=== PATIENT | male | born 1985 | race Two or more races ===

== ENCOUNTER 2024-10-08 13:36 | Emergency (ER) | payer MEDICAID, OTHER ==
[~2024-10-08] VITALS: Ht 175.3 cm; Wt 63.8 kg
[2024-10-08 15:45] VITALS: TEMP 98
[2024-10-08] MEDS: SODIUM CHLORIDE 0.9% 1,000 ML IV ONE (16:00)
--- NOTE | 2024-10-08 16:06 | ED.PDOC ---
HPI (NEURO) HPI Comments 39 year old male presents to the ED with chief complaint of dizziness. Patient reports that he has been experiencing intermittent dizziness and imbalance for the past 4 days, believing it to be vertigo. Patient relays that he had been seen at [facility] and [facility] multiple times for the same complaint with no abnormalities shown in his lab work or imaging studies. Patient states no one has checked his ears as they feel clogged and there is pressure in both, but he was prescribed Azithromycin for a presumed infection. Patient notes after taking the Azithromycin for 3 days, he began to experience palpitations, so he stopped taking them. Patient notes diarrhea and nausea this morning, unknown if related to his dizziness. Patient denies any vomiting, headache, fever, chills, ear pain, chest pain, or SOB. Chief Complaint: Dizziness Time Seen by MD: 15:59 Primary Care Provider: GUILHERME Delgado Notes: Nurses Notes, Medications, Allergies Information Source: Patient Mode of Arrival: Wheelchair Severity: Moderate Dizziness/Weakness Severity: Unable to do activities Headache Severity: None Timing: Days Duration: Since onset Prehospital treatment: None Onset: At rest Circumstances: Spontaneous Symptoms: Vertigo, Imbalance History of: None Modifying factors: Nothing Past Medical History PAST MEDICAL HISTORY: Denies Surgical History: Denies all surgeries Family History Family History: Reviewed,noncontributory to illness Social History Smoker: Cigarettes Alcohol: Denies ETOH Use Drugs: Denies Drug Use Lives In: Home Constitutional: denies: chills, diaphoresis, fatigue, fever, malaise, sweats, weakness, others EENTM: denies: blurred vision, double vision, ear bleeding, ear discharge, ear drainage, ear pain, ear ringing, eye pain, eye redness, hearing loss, mouth pain, mouth swelling, nasal discharge, nose bleeding, nose congestion, nose pain, photophobia, tearing, throat pain, throat swelling, voice changes, others Respiratory: denies: cough, hemoptysis, orthopnea, SOB at rest, shortness of breath, SOB with excertion, stridor, wheezing, others Cardiovascular: denies: chest pain, dizzy spells, diaphoresis, Dyspnea on exertion, edema, irregular heart beat, left arm pain, lightheadedness, palpitations, PND, syncope, others Gastrointestinal: reports: diarrhea, nausea; denies: abdomen distended, abdominal pain, blood streaked bowels, constipated, dysphagia, difficulty swallowing, hematemesis, melena, poor appetite, poor fluid intake, rectal bleeding, rectal pain, vomiting, others Genitourinary: denies: burning, dysuria, flank pain, frequency, hematuria, incontinence, penile discharge, penile sore, pain, testicle pain, testicle swell ing, urgency, others Neurological: reports: dizziness, others (Imbalance); denies: fainting, headache, left sided numbness, left sided weakness, numbness, paresthesia, pre- existing deficit, right sided numbness, right sided weakness, seizure, speech problems, tingling, tremors, weakness Musculoskeletal: denies: back pain, gout, joint pain, joint swelling, muscle pain, muscle stiffness, neck pain, others Integumetry: denies: bruises, change in color, change in hair/nails, dryness, laceration, lesions, lumps, rash, wounds, others Allergic/Immunocompromised: denies: Difficulty Healing, Frequent Infections, Hives, Itching, others Hematologic/Lymphatic: denies: anemia, blood clots, easy bleeding, easy bruising, swollen glands, others Endocrine: denies: excessive hunger, excessive sweating, excessive thirst, excessive urination, flushing, intolerance to cold, intolerance to heat, unexplained weight gain, unexplained weight loss, others Psychiatric: denies: anxiety, bipolar disorder, depression, hopeless, panic disorder, schizophrenia, sleepless, suicidal, others All Other Systems: Reviewed and Negative Physical Exam General Appearance: No Apparent Distress HEENT: PERRL/EOMI, Other (Left TM unremarkable. Right TM cloudy. Canals unremarkable.) Neck: Full Range of Motion, Normal Inspection Respiratory: Lungs Clear, No Accessory Muscle Use, No Respiratory Distress, Normal Breath Sounds Cardiovascular: No Edema, No JVD, Regular Rate/Rhythm Breast Exam: Deferred Gastrointestinal: Non Tender, Soft Genitalia: Deferred Pelvic: Deferred Rectal: Deferred Extremities: Normal inspection, Normal range of motion, Non-tender, No pedal edema Neurologic: Alert (Oriented x4), No Motor Deficits, Normal Affect, Normal Mood, No Sensory Deficits, Other (Head movement and eye movement reproduces dizziness symptoms.) Cerebellar Function: NOT DONE Reflexes: NOT DONE Skin: Dry, Normal Color, Warm Lymphatic: NOT DONE EKG EKG : Comments Sinus rhythm, rate 66, normal intervals, normal axis, normal QRS, nonspecific T change. Was a procedure done? Was a procedure done?: No Differential Diagnosis (SZ) Seizure: Idiopathic CVA: Electrolyte Imbalance, Encephalopathy, Hypoglycemia, TIA General Weakness: Meniere's disease Headache: Sinusitis, Other (Otitis media, positional vertigo, among others) X-Ray, Labs, Meds, VS Vital Signs Date Time Temp Pulse Resp B/P (MAP) Pulse Ox O2 Delivery O2 Flow Rate FiO2 10/08/24 15:45 98.0 64 18 144/90 (108) 100 98.0 10/08/24 15:45 64 18 100 Room Air 10/08/24 13:49 66 10/08/24 13:43 99.1 73 16 138/83 (101) 100 Lab Test 10/08/24 17:17 10/08/24 16:38 10/08/24 16:10 10/08/24 13:45 Range/Units Troponin I High Sensitivity < 3 L < 3 L </=54 ng/L Urine Color Colorless Yellow Urine Clarity Clear Clear Urine pH 6.0 5.0-9.0 Urine Specific Drake 1.005 1.001-1.035 Urine Protein Negative Negative Urine Ketones 1+ H Negative Urine Blood Negative Negative /uL Urine Nitrite Negative Negative Urine Bilirubin Negative Negative Urine Urobilinogen Normal Negative mg/dL Urine Leukocyte Esterase Negative Negative /uL Urine RBC <1 0 - 3 /hpf Urine WBC 1 0 - 3 /hpf Urine Squamous Epithelial Cells Few <5 /hpf Urine Bacteria None seen None Seen /hpf Urine Glucose Normal Normal mg/dL White Blood Count 9.9 4.4-10.8 10^3/uL Red Blood Count 5.18 4.5-5.90 10^6/uL Hemoglobin 14.6 13.5-17.5 g/dL Hematocrit 45.0 41.0-53.0 % Mean Corpuscular Volume 86.8 80.0-100.0 fL Mean Corpuscular Hemoglobin 28.2 28.0-32.0 pg Mean Corpuscular Hemoglobin Concent 32.5 32.0-36.0 g/dL Red Cell Distribution Width 14.5 H 11.8-14.3 % Platelet Count 360 140-450 10^3/uL Mean Platelet Volume 7.2 6.9-10.8 fL Neutrophils (%) (Auto) 59.4 37.0-80.0 % Lymphocytes (%) (Auto) 33.4 10.0-50.0 % Monocytes (%) (Auto) 5.7 0.0-12.0 % Eosinophils (%) (Auto) 0.8 0.0-7.0 % Basophils (%) (Auto) 0.7 0.0-2.0 % Neutrophils # (Auto) 5.9 1.6-8.6 10 ^3/uL Lymphocytes # (Auto) 3.3 0.4-5.4 10 ^3/uL Monocytes # (Auto) 0.6 0-1.3 10 ^3/uL Eosinophils # (Auto) 0.1 0-0.8 10 ^3/uL Basophils # (Auto) 0.1 0-0.2 10 ^3/uL Nucleated Red Blood Cells 0.2 % Sodium Level 140 136-145 mmol/L Potassium Level 4.1 3.5-5.1 mmol/L Chloride Level 108 H 98-107 mmol/L Carbon Dioxide Level 24 20-31 mmol/L Anion Gap 8 5-15 Blood Urea Nitrogen 8 L 9-23 mg/dL Creatinine 0.98 0.700-1.30 mg/dL Glomerular Filtration Rate Calc 99 >90 mL/min BUN/Creatinine Ratio 8.2 L 10.0-20.0 Serum Glucose 88 74-106 mg/dL Calcium Level 10.2 8.7-10.4 mg/dL B-Type Natriuretic Peptide 9.27 0-100 pg/mL POC Glucose 89 70-106 mg/dl Current Medications Medications (Trade) Dose Ordered Sig/Krystle Route Start Time Stop Time Status Last Admin Sodium Chloride 1,000 ml @ 1,000 mls/hr Q1H ONCE IV 10/08/24 16:00 10/08/24 16:59 DC 10/08/24 16:00 Ondansetron HCl (Zofran) 4 mg ONCE ONCE IV 10/08/24 16:00 10/08/24 16:01 DC 10/08/24 16:37 Dexamethasone Sodium Phosphate (Decadron Injection) 10 mg ONCE ONCE IV 10/08/24 16:00 10/08/24 16:01 DC 10/08/24 16:36 Lorazepam (Ativan Inj) 0.5 mg ONCE ONCE IV 10/08/24 16:00 10/08/24 16:01 DC 10/08/24 16:37 Meclizine HCl (Antivert Tablet) 50 mg ONCE ONCE PO 10/08/24 16:00 10/08/24 16:01 DC 10/08/24 16:37 X-Ray, Labs, Meds, VS Comment 39-year-old male with no significant past medical history complaining of dizzin ess and palpitations. Patient was seen at both [facility] and [facility] with negative workups. He was never treated for vertigo. Patient states no one ever examined his ears. Vitals unremarkable Exam remarkable for a cloudy right TM and reproducible dizziness with head and eye movement. CBC, BMP, BNP and troponin unremarkable for any abnormality of acute sig nificance Patient treated with the following in the ED: 1 L 0.9 normal saline IV bolus, Decadron 10 mg IV, Ativan 0.5 mg IV, Zofran 4 mg IV, meclizine 50 mg p.o.. On re-evaluation, patient states his symptoms have resolved. He is ambulatory without difficulty and has no focal neurologic deficit. Head movement no longer reproduces dizziness symptoms. Hospitalization was considered, however patient had rapid improvement of his symptoms with treatment in the ED, and I no longer feel hospitalization is nec essary. Patient is stable for outpatient treatment with close follow-up with his primary physician. Rx meclizine, Zofran, Bactrim. Time of 1ST Reevaluation: 16:59 Reevaluation 1ST: Improved Patient Education/Counseling: Diagnosis, Treatment Family Education/Counseling: No Family Present Departure 1 Departure Time of Disposition: 18:22 Impression: Primary Impression: Vertigo Additional Impression: Otitis media Qualified Codes: H66.91 - Otitis media, unspecified, right ear Disposition: HOME / SELF CARE / HOMELESS Condition: Stable Additional Instructions: Your blood tests including heart tests were unremarkable. Your EKG was unremarkable. I have prescribed medication for vertigo, nausea, and antibiotics for an ear infection. Follow-up with your primary doctor in 1-2 days. e-Prescriptions Meclizine HCl (Meclizine 25) 25 Mg Tab 1-2 TAB PO Q8HP PRN, #30 TAB prn dizziness/vertigo Prov: LILLIAN RUIARTE MD 10/08/24 Ondansetron Odt 4MG Tab (ZOFRAN PO) 4 Mg Tb 4 MG PO TID PRN, #30 TAB prn nausea ODT TAB-DISSOLVE IN MOUTH, THEN SWALLOW Prov: LILLIAN URIARTE MD 10/08/24 Sulfamethoxazole W/Trimethopri (Bactrim Ds Tablet) 1 Tab Tb 1 TAB PO BID for 7 Days, #14 TAB Prov: LILLIAN URIARTE MD 10/08/24 Discharged With: Self Critical Care Note Critical Care Time?: No Stability Stability form required: No Heart Score Heart Score: Heart Score Response (Comments) Value History N/A 0 EKG N/A 0 Age N/A 0 Risk Factors N/A 0 Troponin N/A 0 Total 0 I personally scribed for LILLIAN URIARTE MD ([email or web address]) on 10/08/24 at 16:06. Electronically submitted by Chirag Leyva ([email or web address]). LILLIAN URIARTE MD Oct 08, 2024 16:06
[2024-10-08 16:26] LABS: Basophils # (auto) 0.1 10 ^3/uL (0-0.2); Basophils % (auto) 0.7 % (0.0-2.0); Eosinophils # (auto) 0.1 10 ^3/uL (0-0.8); Eosinophils % (auto) 0.8 % (0.0-7.0); Hemoglobin 14.6 g/dL (13.5-17.5); Lymphocytes # (auto) 3.3 10 ^3/uL (0.4-5.4); Lymphocytes % (auto) 33.4 % (10.0-50.0); Mean Corpuscular Hemoglobin 28.2 pg (28.0-32.0); Mean Corpuscular Hgb Conc. 32.5 g/dL (32.0-36.0); Mean Corpuscular Volume 86.8 fL (80.0-100.0); Monocytes # (auto) 0.6 10 ^3/uL (0-1.3); Monocytes % (auto) 5.7 % (0.0-12.0); Neutrophils # (auto) 5.9 10 ^3/uL (1.6-8.6); Neutrophils % (auto) 59.4 % (37.0-80.0); Nucleated Red Blood Cells % 0.2 %; Platelet Count (auto) 360 10^3/uL (140-450); Red Blood Cells 5.18 10^6/uL (4.5-5.90); Red Cell Distribution Width 14.5 % (11.8-14.3); White Blood Cell 9.9 10^3/uL (4.4-10.8)
[2024-10-08] MEDS: DexAMETHasone SOD PHOS 10MG/1ML VIAL INJ IV ONE (16:36)
[2024-10-08] MEDS: ONDANSETRON HCL 4 MG/2 ML VIAL IV ONE (16:37)
[2024-10-08] MEDS: MECLIZINE HCL 25 MG TAB PO ONE (16:37)
[2024-10-08] MEDS: LORazepam 2MG/ML-1ML VIAL IV ONE (16:37)
[2024-10-08 16:43] LABS: Potassium 4.1 mmol/L (3.5-5.1); Sodium 140 mmol/L (136-145)
[2024-10-08 16:44] LABS: Anion Gap 8 (5-15); Carbon Dioxide 24 mmol/L (20-31); Chloride 108 mmol/L (98-107)
[2024-10-08 16:45] LABS: Calcium 10.2 mg/dL (8.7-10.4)
[2024-10-08 16:49] LABS: BUN/Creatinine Ratio 8.2 (10.0-20.0); Glucose 88 mg/dL (74-106)
[2024-10-08 16:52] LABS: Blood Urea Nitrogen 8 mg/dL (9-23)
[2024-10-08 17:27] LABS: Urine Bacteria None Seen /hpf (None Seen)
[2024-10-08 17:34] LABS: Urine Blood Negative /uL (Negative); Urine Clarity Clear (Clear); Urine Color Colorless (Yellow); Urine Protein, UAD Negative (Negative); Urine Specific Gravity 1.005 (1.001-1.035); Urine Squamous Epithelial Cell FEW /hpf (<5); Urine Urobilinogen Normal (Negative); Urine WBC 1 /hpf (0 - 3)
[2024-10-08] MEDS ORDERED: ZOFR4T PO (18:30)
[2024-10-08] MEDS ORDERED: MECL1TAB42 PO (18:30)
[2024-10-08] MEDS ORDERED: BACDST PO (18:30)
[2024-10-08 19:12] VITALS: BP 123/74; PULSE 74; RESP 18; O2SAT 98
--- NOTE | 2024-10-14 18:02 | ECG ---
[facility] Test Date: 2024-10-08 Test Time: 13:49:48 Pat Name: JESSICA FELICIANO Department: ER Room: Gender: M Regulatory Compliance Officer: CHRIS : 1985 Requested By: LILLIAN RUIZ Order Number: [id number] Reading MD: Maciel Darden Measurements Intervals Raysal Rate: 66 P: 78 WA: 137 QRS: 69 QRSD: 76 T: -15 QT: 372 QTc: 390 Interpretive Statements Sinus rhythm Borderline T abnormalities, inferior leads Electronically Signed On 10-14-2024 18:13:17 PST by Maciel Darden Please click the below link to view image of tracing.
== END 2024-10-08 19:13 | disposition home or self-care (01) ==
LOC: ER 13:36
DX: H66.91 Otitis media, unspecified, right ear (principal); R42 Dizziness and giddiness; F17.210 Nicotine dependence, cigarettes, uncomplicated
CPT/HCPCS: 36415; 80048; 81001; 82962; 83880; 84484; 85025; 93005; 96361; 96374; 96375; 99284; J1100; J2060; J2405; J7030; J8597

== ENCOUNTER 2024-10-15 12:17 | Emergency (ER) | payer MEDICAID ==
[~2024-10-15] VITALS: Ht 175.3 cm; Wt 64.5 kg
[~2024-10-15 12:17] MED LIST: BACDST PO; MECL1TAB42 PO; ZOFR4T PO
[2024-10-15 14:39] LABS: Urine Bacteria None Seen /hpf (None Seen)
[2024-10-15 14:53] LABS: Urine Blood 1+ /uL (Negative); Urine Clarity Clear (Clear); Urine Color Light-Yellow (Yellow); Urine Protein, UAD Negative (Negative); Urine Specific Gravity 1.009 (1.001-1.035); Urine Squamous Epithelial Cell FEW /hpf (<5); Urine Urobilinogen Normal (Negative); Urine WBC 1 /hpf (0 - 3); Urine pH 5.5 (5.0-9.0)
--- NOTE | 2024-10-15 14:55 | ED.PDOC ---
General HPI Comments 39Y M presents to ED for chief complaint dysuria x2days with hematuria. No other symptoms reported. Chief Complaint: Flank Pain Time Seen by MD: 14:34 Primary Care Provider: UNKNOWN Reviewed notes: Nurses Notes, Medications, Allergies Allergies: Coded Allergies: NO KNOWN ALLERGIES (Unverified , 10/08/24) Home Meds Active Scripts Meclizine HCl (Meclizine 25) 25 Mg Tab, 1-2 TAB PO Q8HP PRN, #30 TAB prn dizziness/vertigo Prov:LILLIAN URIARTE MD 10/08/24 Ondansetron Odt 4MG Tab (ZOFRAN PO) 4 Mg Tb, 4 MG PO TID PRN, #30 TAB prn nausea ODT TAB-DISSOLVE IN MOUTH, THEN SWALLOW Prov:LILLIAN URIARTE MD 10/08/24 Sulfamethoxazole W/Trimethopri (Bactrim Ds Tablet) 1 Tab Tb, 1 TAB PO BID for 7 Days, #14 TAB Prov:LILLIAN URIARTE MD 10/08/24 Mode of Arrival: Ambulatory Severity: Mild Timing: Days Duration: Since onset Onset: Spontaneous Symptoms: Dysuria, Hematuria History of: None Location: None Penile discharge: None Modifying factors: None associated signs and symptoms: Dysuria, Hematuria Past Medical History PAST MEDICAL HISTORY: Denies Surgical History: Denies all surgeries Family History Family History: Reviewed,noncontributory to illness Social History Smoker: Cigarettes Alcohol: Denies ETOH Use Drugs: Denies Drug Use Lives In: Home Constitutional: denies: chills, diaphoresis, fatigue, fever, malaise, sweats, weakness, others EENTM: denies: blurred vision, double vision, ear bleeding, ear discharge, ear drainage, ear pain, ear ringing, eye pain, eye redness, hearing loss, mouth pain, mouth swelling, nasal discharge, nose bleeding, nose congestion, nose pain , photophobia, tearing, throat pain, throat swelling, voice changes, others Respiratory: denies: cough, hemoptysis, orthopnea, SOB at rest, shortness of breath, SOB with excertion, stridor, wheezing, others Cardiovascular: denies: chest pain, dizzy spells, diaphoresis, Dyspnea on exertion, edema, irregular heart beat, left arm pain, lightheadedness, palpitations, PND, syncope, others Gastrointestinal: denies: abdomen distended, abdominal pain, blood streaked bowels, constipated, diarrhea, dysphagia, difficulty swallowing, hematemesis, melena, nausea, poor appetite, poor fluid intake, rectal bleeding, rectal pain, vomiting, others Genitourinary: reports: dysuria, hematuria; denies: burning, flank pain, frequency, incontinence, penile discharge, penile sore, pain, testicle pain, testicle swelling, urgency, others Neurological: denies: dizziness, fainting, headache, left sided numbness, left sided weakness, numbness, paresthesia, pre-existing deficit, right sided numbness, right sided weakness, seizure, speech problems, tingling, tremors, weakness, others Musculoskeletal: denies: back pain, gout, joint pain, joint swelling, muscle pain, muscle stiffness, neck pain, others Integumetry: denies: bruises, change in color, change in hair/nails, dryness, laceration, lesions, lumps, rash, wounds, others Allergic/Immunocompromised: denies: Difficulty Healing, Frequent Infections, Hives, Itching, others Hematologic/Lymphatic: denies: anemia, blood clots, easy bleeding, easy bruising, swollen glands, others Endocrine: denies: excessive hunger, excessive sweating, excessive thirst, excessive urination, flushing, intolerance to cold, intolerance to heat, unexplained weight gain, unexplained weight loss, others Psychiatric: denies: anxiety, bipolar disorder, depression, hopeless, panic disorder, schizophrenia, sleepless, suicidal, others All Other Systems: Reviewed and Negative Physical Exam General Appearance: No Apparent Distress, Normal HEENT: Normal ENT Inspection, Pharynx Normal, TMs Normal Neck: Full Range of Motion, Non-Tender, Normal, Normal Inspection Respiratory: Chest Non-Tender, Lungs Clear, No Accessory Muscle Use, No R espiratory Distress, Normal Breath Sounds Cardiovascular: No Edema, No JVD, No Murmur, No Gallop, Normal Peripheral Pulses, Regular Rate/Rhythm Breast Exam: Deferred Gastrointestinal: No Organomegaly, Non Tender, No Pulsatile Mass, Normal Bowel Sounds, Soft Genitalia: Deferred Pelvic: Deferred Rectal: Deferred Extremities: No calf tenderness, Normal capillary refill, Normal inspection, Normal range of motion, Non-tender, No pedal edema Musculoskeletal : Apperance: Normal Neurologic: Alert, 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 Was a procedure done?: No Differential Diagnosis Kidney stone (Female): N/A Kidney stone (Male): Urolithiasis, Urinary tract infection Urinary Problem (Female): N/A Other Differential Diagnosis bladder mass, kidney mass, pyelonephritis, kidney stones, hemorrhagic cystitis, coagulopathy, penile trauma X-Ray, Labs, Meds, VS Vital Signs Date Time Temp Pulse Resp B/P (MAP) Pulse Ox O2 Delivery O2 Flow Rate FiO2 10/15/24 16:16 98.3 91 18 127/88 (101) 98 98.3 10/15/24 12:49 98.6 90 18 128/89 (102) 97 Lab Test 10/15/24 15:14 10/15/24 14:37 Range/Units White Blood Count 5.6 # 4.4-10.8 10^3/uL Red Blood Count 5.25 4.5-5.90 10^6/uL Hemoglobin 14.9 13.5-17.5 g/dL Hematocrit 45.1 41.0-53.0 % Mean Corpuscular Volume 86.0 80.0-100.0 fL Mean Corpuscular Hemoglobin 28.5 28.0-32.0 pg Mean Corpuscular Hemoglobin Concent 33.1 32.0-36.0 g/dL Red Cell Distribution Width 14.3 11.8-14.3 % Platelet Count 227 140-450 10^3/uL Mean Platelet Volume 7.3 6.9-10.8 fL Neutrophils (%) (Auto) 32.0 L 37.0-80.0 % Lymphocytes (%) (Auto) 49.9 10.0-50.0 % Monocytes (%) (Auto) 16.9 H 0.0-12.0 % Eosinophils (%) (Auto) 0.6 0.0-7.0 % Basophils (%) (Auto) 0.6 0.0-2.0 % Neutrophils # (Auto) 1.8 1.6-8.6 10 ^3/uL Lymphocytes # (Auto) 2.8 0.4-5.4 10 ^3/uL Monocytes # (Auto) 0.9 0-1.3 10 ^3/uL Eosinophils # (Auto) 0 0-0.8 10 ^3/uL Basophils # (Auto) 0 0-0.2 10 ^3/uL Nucleated Red Blood Cells 0.9 % Sodium Level 134 #L 136-145 mmol/L Potassium Level 4.2 3.5-5.1 mmol/L Chloride Level 101 98-107 mmol/L Carbon Dioxide Level 27 20-31 mmol/L Anion Gap 6 5-15 Blood Urea Nitrogen 8 L 9-23 mg/dL Creatinine 1.50 H 0.700-1.30 mg/dL Glomerular Filtration Rate Calc 60 >90 mL/min BUN/Creatinine Ratio 5.3 L 10.0-20.0 Serum Glucose 92 74-106 mg/dL Calcium Level 9.8 8.7-10.4 mg/dL Urine Color Light-yellow Yellow Urine Clarity Clear Clear Urine pH 5.5 5.0-9.0 Urine Specific Reading 1.009 1.001-1.035 Urine Protein Negative Negative Urine Ketones Negative Negative Urine Blood 1+ H Negative /uL Urine Nitrite Negative Negative Urine Bilirubin Negative Negative Urine Urobilinogen Normal Negative mg/dL Urine Leukocyte Esterase Negative Negative /uL Urine RBC 8 0 - 3 /hpf Urine WBC 1 0 - 3 /hpf Urine Squamous Epithelial Cells Few <5 /hpf Urine Bacteria None seen None Seen /hpf Urine Glucose Normal Normal mg/dL [place] [id number] Ph: [phone] DIAGNOSTIC IMAGING Diagnostic Imaging Report : [id number] Signed PATIENT: JESSICA FELICIANO ACCT: [id number] UNIT: [id number] : 1985 LOC: ER ROOM / BED: / AGE / SEX: 39 / M ADM STATUS: REG ER SERVICE 1302 ORDERING PHYSICIAN: GUIDO POLANCO MD PROCEDURE(s): ABPL - CT AB PEL WO CON-NO ORAL OR IV REASON: flank pain, hematuria ORDER NUMBER(s): [id number], ACCESSION NUMBER(s): [id number] Exam: CT CT AB PEL WO CON-NO ORAL OR IV History: flank pain, hematuria Comparison Study: None available at time of dictation. TECHNIQUE: Multidetector CT of the abdomen was performed from lung bases to pubic symphysis. Imaging was performed without IV contrast. Axial, coronal and sagittal multiplanar reformats were obtained from the axial data set by the technologist. Radiation Dose Information: CT Dose: CTDI volume is 5.20 mGy. Dose-length product is 271.42 mGy*cm FINDINGS: Evaluation of solid organs is limited due to lack of intravenous contrast use. Findings: Lung Bases: No acute or significant lung base finding. Normal heart size. No pleural or pericardial effusion. Liver: The liver is normal in size. Scattered low-density subcentimeter lesions throughout the right lobe of the liver. Gallbladder and Biliary Tree: Unremarkable Spleen: Unremarkable Pancreas: The pancreas is grossly normal in appearance. Adrenal Glands: Unremarkable Kidneys: Kidneys are grossly normal without calculi or hydronephrosis. Bladder: Grossly unremarkable for degree of distention. Bowel: The stomach is grossly normal in appearance. Small bowel and colon are n ormal in caliber and distribution. The appendix is normal. Ascites: Absent Lymphadenopathy: No mesenteric, retroperitoneal or periportal lymphadenopathy. Abdominal Wall and Mesentery: Unremarkable. Vasculature: The visualized abdominal aorta is normal in size and caliber. Evaluation of abdominal and pelvic vessels is limited due to lack of intravenous contrast. Pelvic Organs: Unremarkable Musculoskeletal: No aggressive focal bony lesions, acute fractures or dislocation. Soft tissues: Unremarkable IMPRESSION: 1. No acute abdominal or pelvic finding. Specifically, no renal or ureteral calculi. No hydronephrosis bilaterally. 2. A few subcentimeter hypodense lesions within the liver, too small to characterize. Radiation optimization: All CT scans at this facility use at least one of these dose optimization techniques: automated exposure control mA and/or kV adjustm ent per patient size (includes targeted exams where dose is matched to clinical indication) or iterative reconstruction. HS:Y ATED BY: LYNNETTE VASQUEZ DO DICTATED DATE/TIME: 10/15/24 1523 SIGNED BY: LYNNETTE VASQUEZ DO SIGNED DATE/TIME: 10/15/24 1523 CC: Time of 1ST Reevaluation: 15:04 Reevaluation 1ST: Unchanged Time of 2ND Reevaluation: 16:34 Reevaluation 2ND: Improved Patient Education/Counseling: Diagnosis, Treatment, Prognosis, Need For Follow Up Family Education/Counseling: No Family Present Additional Information I reviewed the following notes from patient's past medical encounters: [facility] ER 10/08/2024 The following tests were ordered, and results were reviewed by me: CBC, BMP, UA, CT abd/pelvis WO contrast Additional Information was gathered from interviewing the following independent historians: None I reviewed and agreed with the following test results read by other providers: CT abd/pelvis WO contrast I discussed treatment and results with medical personnel. pt does not have a uti, bladder mass, kidney stones, or kidney mass. he is stable to follow up with his PCP for hematuria, which is not active Departure 1 Departure Time of Disposition: 16:35 Impression: Primary Impression: Hematuria Qualified Codes: R31.9 - Hematuria, unspecified Disposition: HOME / SELF CARE / HOMELESS Condition: Good Discharged With: Self Critical Care Note Critical Care Time?: No Stability Stability form required: No Heart Score Heart Score: Heart Score Response (Comments) Value History N/A 0 EKG N/A 0 Age N/A 0 Risk Factors N/A 0 Troponin N/A 0 Total 0 I personally scribed for GUIDO POLANCO MD ([email or web address]) on 10/15/24 at 14:55. Electronically submitted by Tomasa Betts ([email or web address]). I personally scribed for GUIDO POLANCO MD ([email or web address]) on 10/15/24 at 14:56. Electronically submitted by Tomasa Betts ([employer]). I personally scribed for GUIDO POLANCO MD ([employer]) on 10/15/24 at 15:34. Electronically submitted by Tomasa Betts ([employer]). GUIDO POLANCO MD Oct 15, 2024 14:55
--- NOTE | 2024-10-15 15:25 | DVH ---
Exam: CT CT AB PEL WO CON-NO ORAL OR IV History: flank pain, hematuria Comparison Study: None available at time of dictation. TECHNIQUE: Multidetector CT of the abdomen was performed from lung bases to pubic symphysis. Imaging was performed without IV contrast. Axial, coronal and sagittal multiplanar reformats were obtained fr om the axial data set by the technologist. Radiation Dose Information: CT Dose: CTDI volume is 5.20 mGy. Dose-length product is 271.42 mGy*cm FINDINGS: Evaluation of solid organs is limited due to lack of intravenous contrast use. Findings: Lung Bases: No acute or significant lung base finding. Normal heart size. No pleural or pericardial effusion. Liver: The liver is normal in size. Scattered low-density subcentimeter lesions throughout the right lobe of the liver. Gallbladder and Biliary Tree: Unremarkable Spleen: Unremarkable Pancreas: The pancreas is grossly normal in appearance. Adrenal Glands: Unremarkable Kidneys: Kidneys are grossly normal without calculi or hydronephrosis. Bladder: Grossly unremarkable for degree of distention. Bowel: The stomach is grossly normal in appearance. Small bowel and colon are normal in caliber and d istribution. The appendix is normal. Ascites: Absent Lymphadenopathy: No mesenteric, retroperitoneal or periportal lymphadenopathy. Abdominal Wall and Mesentery: Unremarkable. Vasculature: The visualized abdominal aorta is normal in size and caliber. Evaluation of abdominal a nd pelvic vessels is limited due to lack of intravenous contrast. Pelvic Organs: Unremarkable Musculoskeletal: No aggressive focal bony lesions, acute fractures or dislocation. Soft tissues: Unremarkable IMPRESSION: 1. No acute abdominal or pelvic finding. Specifically, no renal or ureteral calculi. No hydronephros is bilaterally. 2. A few subcentimeter hypodense lesions within the liver, too small to characterize. Radiation optimization: All CT scans at this facility use at least one of these dose optimization te chniques: automated exposure control mA and/or kV adjustment per patient size (includes targeted exa ms where dose is matched to clinical indication) or iterative reconstruction. HS:Y
[2024-10-15 15:47] LABS: Basophils # (auto) 0 10 ^3/uL (0-0.2); Basophils % (auto) 0.6 % (0.0-2.0); Eosinophils # (auto) 0 10 ^3/uL (0-0.8); Eosinophils % (auto) 0.6 % (0.0-7.0); Hematocrit 45.1 % (41.0-53.0); Hemoglobin 14.9 g/dL (13.5-17.5); Lymphocytes # (auto) 2.8 10 ^3/uL (0.4-5.4); Lymphocytes % (auto) 49.9 % (10.0-50.0); Mean Corpuscular Hemoglobin 28.5 pg (28.0-32.0); Mean Corpuscular Hgb Conc. 33.1 g/dL (32.0-36.0); Monocytes # (auto) 0.9 10 ^3/uL (0-1.3); Monocytes % (auto) 16.9 % (0.0-12.0); Neutrophils # (auto) 1.8 10 ^3/uL (1.6-8.6); Nucleated Red Blood Cells % 0.9 %; Platelet Count (auto) 227 10^3/uL (140-450); Red Blood Cells 5.25 10^6/uL (4.5-5.90); Red Cell Distribution Width 14.3 % (11.8-14.3); White Blood Cell 5.6 10^3/uL (4.4-10.8)
[2024-10-15 15:56] LABS: Anion Gap 6 (5-15); Carbon Dioxide 27 mmol/L (20-31); Chloride 101 mmol/L (98-107); Potassium 4.2 mmol/L (3.5-5.1)
[2024-10-15 15:57] LABS: Calcium 9.8 mg/dL (8.7-10.4)
[2024-10-15 16:02] LABS: BUN/Creatinine Ratio 5.3 (10.0-20.0); Glucose 92 mg/dL (74-106)
[2024-10-15 16:04] LABS: Blood Urea Nitrogen 8 mg/dL (9-23); Sodium 134 mmol/L (136-145)
[2024-10-15 16:16] VITALS: BP 127/88; PULSE 91; RESP 18; TEMP 98.3; O2SAT 98
== END 2024-10-15 16:54 | disposition home or self-care (01) ==
LOC: ER 12:17
DX: R31.9 Hematuria, unspecified (principal); F17.210 Nicotine dependence, cigarettes, uncomplicated; Z79.899 Other long term (current) drug therapy
CPT/HCPCS: 36415; 74176; 80048; 81001; 85025

== ENCOUNTER 2024-11-17 02:15 | Emergency (ER) | payer MEDICAID ==
[~2024-11-17] VITALS: Ht 175.3 cm; Wt 63.6 kg
[2024-11-17 02:40] VITALS: BP 118/64; PULSE 65; RESP 20; O2SAT 100
[2024-11-17 03:49] LABS: Urine Bacteria None Seen /hpf (None Seen)
[2024-11-17 04:18] LABS: Urine Blood TRACE /uL (Negative); Urine Clarity Clear (Clear); Urine Color Light-Yellow (Yellow); Urine Protein, UAD Negative (Negative); Urine Specific Gravity 1.013 (1.001-1.035); Urine Squamous Epithelial Cell FEW /hpf (<5); Urine Urobilinogen Normal (Negative); Urine WBC 4 /HPF (0-3); Urine pH 5.5 (5.0-9.0)
[2024-11-17] MEDS: ONDANSETRON ODT 4 MG TAB PO ONE (08:56)
[2024-11-17] MEDS: DOXYCYCLINE 100 MG TAB/CAP PO ONE (08:56)
[2024-11-17] MEDS: cefTRIAXone SOD 1,000 MG VL IM ONE (08:56)
[2024-11-17] MEDS ORDERED: CEFD300C2 PO (13:56)
[2024-11-18 19:06] LABS: Chlamydia Trachomatis, NAA Negative (Negative); Neisseria gonorrhoeae, NAA Negative (Negative)
== END 2024-11-17 04:32 | disposition left against medical advice (07) ==
LOC: ER 02:15
DX: R30.9 Painful micturition, unspecified (principal); Z53.21 Procedure and treatment not carried out due to patient leaving prior to being seen by health care provider
CPT/HCPCS: 81001; J0696; Q0162

== ENCOUNTER 2024-11-17 06:19 | Emergency (ER) | payer MEDICAID ==
[~2024-11-17] VITALS: Ht 175.3 cm; Wt 63.3 kg
--- NOTE | 2024-11-17 06:51 | ED.PDOC ---
General HPI Comments 39 year old male presents to the ED with chief complaint of urinary problem. Patient reports that he has been experiencing some particles present in his urine since yesterday along with associated abdominal discomfort and feeling dehydrated. Patient relays that when he was last seen in the ED he had some dysuria and hematuria, but that has since resolved and he believes he may have passed a kidney stone at some time before. Patient denies any N/V/D, dysuria, hematuria, fever, or chills. Chief Complaint: Urinary Time Seen by MD: 06:46 Primary Care Provider: UNKNOWN Reviewed notes: Nurses Notes, Medications, Allergies Allergies: Coded Allergies: NO KNOWN ALLERGIES (Unverified , 10/08/24) Home Meds Active Scripts Meclizine HCl (Meclizine 25) 25 Mg Tab, 1-2 TAB PO Q8HP PRN, #30 TAB prn dizziness/vertigo Prov:LILLIAN URIARTE MD 10/08/24 Ondansetron Odt 4MG Tab (ZOFRAN PO) 4 Mg Tb, 4 MG PO TID PRN, #30 TAB prn nausea ODT TAB-DISSOLVE IN MOUTH, THEN SWALLOW Prov:LILLIAN URIARTE MD 10/08/24 Sulfamethoxazole W/Trimethopri (Bactrim Ds Tablet) 1 Tab Tb, 1 TAB PO BID for 7 Days, #14 TAB Prov:LILLIAN URIARTE MD 10/08/24 Information Source: Patient Mode of Arrival: Ambulatory Severity: Moderate Inability to void: None Timing: Days Duration: Since onset Prehospital treatment: None Onset: Spontaneous Symptoms: Other (Particles in urine) History of: Kidney stone Location: Abdomen Penile discharge: None Modifying factors: None Past Medical History PAST MEDICAL HISTORY: Denies Surgical History: Denies all surgeries Family History Family History: Reviewed,noncontributory to illness Social History Smoker: Cigarettes Alcohol: Denies ETOH Use Drugs: Denies Drug Use Lives In: Home Constitutional: denies: chills, diaphoresis, fatigue, fever, malaise, sweats, weakness, others EENTM: denies: blurred vision, double vision, ear bleeding, ear discharge, ear drainage, ear pain, ear ringing, eye pain, eye redness, hearing loss, mouth pain, mouth swelling, nasal discharge, nose bleeding, nose congestion, nose pain, photophobia, tearing, throat pain, throat swelling, voice changes, others Respiratory: denies: cough, hemoptysis, orthopnea, SOB at rest, shortness of breath, SOB with excertion, stridor, wheezing, others Cardiovascular: denies: chest pain, dizzy spells, diaphoresis, Dyspnea on exertion, edema, irregular heart beat, left arm pain, lightheadedness, palpitations, PND, syncope, others Gastrointestinal: reports: others (Abdominal discomfort); denies: abdomen distended, abdominal pain, blood streaked bowels, constipated, diarrhea, dysphagia, difficulty swallowing, hematemesis, melena, nausea, poor appetite, poor fluid intake, rectal bleeding, rectal pain, vomiting Genitourinary: reports: others (Particles in urine); denies: burning, dysuria, flank pain, frequency, hematuria, incontinence, penile discharge, penile sore, pain, testicle pain, testicle swelling, urgency Neurological: denies: dizziness, fainting, headache, left sided numbness, left sided weakness, numbness, paresthesia, pre-existing deficit, right sided numbness, right sided weakness, seizure, speech problems, tingling, tremors, weakness, others Musculoskeletal: denies: back pain, gout, joint pain, joint swelling, muscle pain, muscle stiffness, neck pain, others Integumetry: denies: bruises, change in color, change in hair/nails, dryness, laceration, lesions, lumps, rash, wounds, others Allergic/Immunocompromised: denies: Difficulty Healing, Frequent Infections, Hives, Itching, others Hematologic/Lymphatic: denies: anemia, blood clots, easy bleeding, easy bruising, swollen glands, others Endocrine: denies: excessive hunger, excessive sweating, excessive thirst, excessive urination, flushing, intolerance to cold, intolerance to heat, unexplained weight gain, unexplained weight loss, others Psychiatric: denies: anxiety, bipolar disorder, depression, hopeless, panic disorder, schizophrenia, sleepless, suicidal, others All Other Systems: Reviewed and Negative Physical Exam General Appearance: No Apparent Distress, Normal HEENT: Normal ENT Inspection, PERRL/EOMI Neck: Full Range of Motion, Non-Tender, Normal, Normal Inspection Respiratory: Chest Non-Tender, Lungs Clear, No Accessory Muscle Use, No Respiratory Distress, Normal Breath Sounds Cardiovascular: No Edema, No JVD, No Murmur, No Gallop, Normal Peripheral Pulses, Regular Rate/Rhythm Breast Exam: Deferred Gastrointestinal: No Organomegaly, Non Tender, No Pulsatile Mass, Normal Bowel Sounds, Soft Genitalia: Deferred Pelvic: Deferred Rectal: Deferred Extremities: No calf tenderness, Normal capillary refill, Normal inspection, Normal range of motion, Non-tender, No pedal edema Musculoskeletal : Apperance: Normal Neurologic: Alert, 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 Was a procedure done?: No Differential Diagnosis Kidney stone (Female): N/A Kidney stone (Male): N/A Penile/Scrotal: N/A Urinary Problem (Male): UTI X-Ray, Labs, Meds, VS Vital Signs Date Time Temp Pulse Resp B/P (MAP) Pulse Ox O2 Delivery O2 Flow Rate FiO2 11/17/24 08:35 97.9 65 20 118/64 (82) 100 97.9 11/17/24 08:35 65 20 100 Room Air 11/17/24 06:29 97.9 65 20 118/64 (82) 100 Lab Test 11/17/24 07:52 11/17/24 06:51 Range/Units Urine Color Light-yellow Yellow Urine Clarity Clear Clear Urine pH 5.5 5.0-9.0 Urine Specific [place] 1.008 1.001-1.035 Urine Protein Negative Negative Urine Ketones Negative Negative Urine Blood Negative Negative /uL Urine Nitrite Negative Negative Urine Bilirubin Negative Negative Urine Urobilinogen Normal Negative mg/dL Urine Leukocyte Esterase Negative Negative /uL Urine RBC 1 0 - 3 /hpf Urine Microscopic WBC 3 0-3 /HPF Urine Squamous Epithelial Cells Few <5 /hpf Urine Bacteria None seen None Seen /hpf Urine Glucose Normal Normal mg/dL Chlamydia trachomatis (AHSAN) Pending Neisseria gonorrhoeae (AHSAN) Pending White Blood Count 8.8 4.4-10.8 10^3/uL Red Blood Count 5.15 4.5-5.90 10^6/uL Hemoglobin 14.9 13.5-17.5 g/dL Hematocrit 44.5 41.0-53.0 % Mean Corpuscular Volume 86.4 80.0-100.0 fL Mean Corpuscular Hemoglobin 28.9 28.0-32.0 pg Mean Corpuscular Hemoglobin Concent 33.5 32.0-36.0 g/dL Red Cell Distribution Width 14.1 11.8-14.3 % Platelet Count 287 140-450 10^3/uL Mean Platelet Volume 7.0 6.9-10.8 fL Neutrophils (%) (Auto) 46.8 37.0-80.0 % Lymphocytes (%) (Auto) 43.9 10.0-50.0 % Monocytes (%) (Auto) 6.4 0.0-12.0 % Eosinophils (%) (Auto) 2.2 0.0-7.0 % Basophils (%) (Auto) 0.7 0.0-2.0 % Neutrophils # (Auto) 4.1 1.6-8.6 10 ^3/uL Lymphocytes # (Auto) 3.9 0.4-5.4 10 ^3/uL Monocytes # (Auto) 0.6 0-1.3 10 ^3/uL Eosinophils # (Auto) 0.2 0-0.8 10 ^3/uL Basophils # (Auto) 0.1 0-0.2 10 ^3/uL Nucleated Red Blood Cells 0.2 % Sodium Level 138 136-145 mmol/L Potassium Level 3.8 3.5-5.1 mmol/L Chloride Level 107 98-107 mmol/L Carbon Dioxide Level 26 20-31 mmol/L Anion Gap 5 5-15 Blood Urea Nitrogen 9 9-23 mg/dL Creatinine 1.07 0.700-1.30 mg/dL Glomerular Filtration Rate Calc 89 >90 mL/min BUN/Creatinine Ratio 8.4 L 10.0-20.0 Serum Glucose 90 74-106 mg/dL Calcium Level 9.6 8.7-10.4 mg/dL Current Medications Medications (Trade) Dose Ordered Sig/Krystle Route Start Time Stop Time Status Last Admin Ceftriaxone Sodium (Rocephin W Lidocaine IM) 1 gm ONCE ONCE IM 11/17/24 06:45 11/17/24 06:50 DC 11/17/24 09:09 Doxycycline Monohydrate (Vibramycin Tablet) 100 mg ONCE ONCE PO 11/17/24 06:45 11/17/24 06:50 DC 11/17/24 09:09 Time of 1ST Reevaluation: 07:46 Reevaluation 1ST: Unchanged Patient Education/Counseling: Diagnosis, Treatment Family Education/Counseling: No Family Present Additional Information I reviewed the following notes from patient's past medical encounters: 10/15/24 for Hematuria The following tests were ordered, and results were reviewed by me: UA, Chlamydia/GC, CBC, BMP I reviewed and agreed with the following test results read by other providers: None Additional Information was gathered from interviewing the following independent historians: None I discussed treatment and results with medical personnel. Departure 1 Departure Time of Disposition: 13:56 (Patient with symptoms of dysuria. We will empirically cover patient with antibiotics. Patient has a left and then returned to the ER multiple times causing a very long length of stay.) Impression: Primary Impression: Dysuria Disposition: HOME / SELF CARE / HOMELESS Condition: Stable Additional Instructions: You you likely have urinary tract infection. You were prescribed antibiotics. Please take as directed. You can take Tylenol Motrin as needed for pain. It is important that he follow up with the regular doctor within 1 week to ensure you are doing better. If your symptoms worsen or you have any other concerns then please return to the emergency room. e-Prescriptions Cefdinir (Cefdinir) 300 Mg Cap 1 CAP PO BID for 5 Days, #14 CAP Prov: KULWINDER TAYLOR MD 11/17/24 Discharged With: Self Critical Care Note Critical Care Time?: No Stability Stability form required: No Heart Score Heart Score: Heart Score Response (Comments) Value History N/A 0 EKG N/A 0 Age N/A 0 Risk Factors N/A 0 Troponin N/A 0 Total 0 I personally scribed for KULWINDER TAYLOR MD ([email or web address]) on 11/17/24 at 06:51. Electronically submitted by Chirag Leyva ([email or web address]). KULWINDER TAYLOR MD Nov 17, 2024 06:51
[2024-11-17 07:21] LABS: Chloride 107 mmol/L (98-107); Potassium 3.8 mmol/L (3.5-5.1); Sodium 138 mmol/L (136-145)
[2024-11-17 07:22] LABS: Anion Gap 5 (5-15); Carbon Dioxide 26 mmol/L (20-31)
[2024-11-17 07:23] LABS: Calcium 9.6 mg/dL (8.7-10.4)
[2024-11-17 07:27] LABS: BUN/Creatinine Ratio 8.4 (10.0-20.0); Blood Urea Nitrogen 9 mg/dL (9-23); Glucose 90 mg/dL (74-106)
[2024-11-17 07:31] LABS: Basophils # (auto) 0.1 10 ^3/uL (0-0.2); Basophils % (auto) 0.7 % (0.0-2.0); Eosinophils # (auto) 0.2 10 ^3/uL (0-0.8); Eosinophils % (auto) 2.2 % (0.0-7.0); Hematocrit 44.5 % (41.0-53.0); Hemoglobin 14.9 g/dL (13.5-17.5); Lymphocytes # (auto) 3.9 10 ^3/uL (0.4-5.4); Lymphocytes % (auto) 43.9 % (10.0-50.0); Mean Corpuscular Hemoglobin 28.9 pg (28.0-32.0); Mean Corpuscular Hgb Conc. 33.5 g/dL (32.0-36.0); Mean Corpuscular Volume 86.4 fL (80.0-100.0); Monocytes # (auto) 0.6 10 ^3/uL (0-1.3); Monocytes % (auto) 6.4 % (0.0-12.0); Neutrophils # (auto) 4.1 10 ^3/uL (1.6-8.6); Neutrophils % (auto) 46.8 % (37.0-80.0); Nucleated Red Blood Cells % 0.2 %; Platelet Count (auto) 287 10^3/uL (140-450); Red Blood Cells 5.15 10^6/uL (4.5-5.90); Red Cell Distribution Width 14.1 % (11.8-14.3); White Blood Cell 8.8 10^3/uL (4.4-10.8)
[2024-11-17 08:06] LABS: Urine Bacteria None Seen /hpf (None Seen)
[2024-11-17 08:19] LABS: Urine Blood Negative /uL (Negative); Urine Clarity Clear (Clear); Urine Protein, UAD Negative (Negative); Urine Specific Gravity 1.008 (1.001-1.035); Urine Squamous Epithelial Cell FEW /hpf (<5); Urine Urobilinogen Normal (Negative); Urine WBC 3 /HPF (0-3); Urine pH 5.5 (5.0-9.0)
[2024-11-17 08:25] LABS: Urine Color Light-Yellow (Yellow)
[2024-11-17 08:35] VITALS: BP 118/64; PULSE 65; RESP 20; TEMP 97.9; O2SAT 100
[2024-11-17] MEDS: cefTRIAXone W LIDOCAINE 1 GM IM IM ONE (09:09)
[2024-11-17] MEDS: DOXYCYCLINE 100 MG TAB/CAP PO ONE (09:09)
[2024-11-17] MEDS: ONDANSETRON ODT 4 MG TAB PO ONE (09:09)
[2024-11-17] MEDS ORDERED: CEFD300C2 PO (13:56)
[2024-11-18 12:06] LABS: Chlamydia Trachomatis, NAA Negative (Negative); Neisseria gonorrhoeae, NAA Negative (Negative)
== END 2024-11-17 14:00 | disposition home or self-care (01) ==
LOC: ER 06:19
DX: R30.0 Dysuria (principal); F17.210 Nicotine dependence, cigarettes, uncomplicated; Z87.442 Personal history of urinary calculi; Z79.899 Other long term (current) drug therapy
CPT/HCPCS: 36415; 80048; 81001; 85025; 87491; 87591; 96372; 99283; J0696

== ENCOUNTER 2024-11-20 17:03 | Emergency (ER) | payer MEDICAID ==
[~2024-11-20] VITALS: Ht 175.3 cm; Wt 62.6 kg
[~2024-11-20 17:03] MED LIST changes: +CEFD300C2 PO
--- NOTE | 2024-11-20 17:56 | ED.PDOC ---
History of Present Illness HPI Comments 39 y/o M presents with c/o dizziness, nausea, and "hot flashes" for the past 2x days, today. Patient comments on onset of symptoms after starting cephalexin antibiotic regiment for a UTI he was diagnosed with 2x days ago. He denies having any chest pain, shortness of breath, headache, vision or speech changes, weakness, or other associated symptoms or modifiers at this time. Vital signs were stable on arrival. Chief Complaint: Dizziness Time Seen by MD: 17:20 Primary Care Provider: UNKNOWN Reviewed Notes: Nurses Notes, Medications, Allergies Allergies: Coded Allergies: NO KNOWN ALLERGIES (Unverified , 10/08/24) Home Meds Active Scripts Cefdinir (Cefdinir) 300 Mg Cap, 1 CAP PO BID for 5 Days, #14 CAP Prov:KULWINDER TAYLOR MD 11/17/24 Meclizine HCl (Meclizine 25) 25 Mg Tab, 1-2 TAB PO Q8HP PRN, #30 TAB prn dizziness/vertigo Prov:LILLIAN URIARTE MD 10/08/24 Ondansetron Odt 4MG Tab (ZOFRAN PO) 4 Mg Tb, 4 MG PO TID PRN, #30 TAB prn nausea ODT TAB-DISSOLVE IN MOUTH, THEN SWALLOW Prov:LILLIAN URIARTE MD 10/08/24 Sulfamethoxazole W/Trimethopri (Bactrim Ds Tablet) 1 Tab Tb, 1 TAB PO BID for 7 Days, #14 TAB Prov:LILLIAN URIARTE MD 10/08/24 Information Source: Patient Mode of Arrival: Ambulatory Severity: Moderate Timing: Days Duration: Since onset Prehospital treatment: None Past Medical History PAST MEDICAL HISTORY: UTI'S Surgical History: Denies all surgeries Family History Family History: Reviewed,noncontributory to illness Social History Smoker: Cigarettes Alcohol: Denies ETOH Use Drugs: Denies Drug Use Lives In: Home Constitutional: reports: others (hot flashes); denies: chills, diaphoresis, fatigue, fever, malaise, sweats, weakness EENTM: denies: blurred vision, double vision, ear bleeding, ear discharge, ear drainage, ear pain, ear ringing, eye pain, eye redness, hearing loss, mouth pain, mouth swelling, nasal discharge, nose bleeding, nose congestion, nose pain, photophobia, tearing, throat pain, throat swelling, voice changes, others Respiratory: denies: cough, hemoptysis, orthopnea, SOB at rest, shortness of breath, SOB with excertion, stridor, wheezing, others Cardiovascular: denies: chest pain, dizzy spells, diaphoresis, Dyspnea on exertion, edema, irregular heart beat, left arm pain, lightheadedness, palpitations, PND, syncope, others Gastrointestinal: reports: nausea; denies: abdomen distended, abdominal pain, blood streaked bowels, constipated, diarrhea, dysphagia, difficulty swallowing, hematemesis, melena, poor appetite, poor fluid intake, rectal bleeding, rectal pain, vomiting, others Genitourinary: denies: burning, dysuria, flank pain, frequency, hematuria, incontinence, penile discharge, penile sore, pain, testicle pain, testicle swelling, urgency, others Neurological: reports: dizziness; denies: fainting, headache, left sided numbness, left sided weakness, numbness, paresthesia, pre-existing deficit, right sided numbness, right sided weakness, seizure, speech problems, tingling, tremors, weakness, others Musculoskeletal: denies: back pain, gout, joint pain, joint swelling, muscle pain, muscle stiffness, neck pain, others Integumetry: denies: bruises, change in color, change in hair/nails, dryness, laceration, lesions, lumps, rash, wounds, others Allergic/Immunocompromised: denies: Difficulty Healing, Frequent Infections, Hives, Itching, others Hematologic/Lymphatic: denies: anemia, blood clots, easy bleeding, easy bruising, swollen glands, others Endocrine: denies: excessive hunger, excessive sweating, excessive thirst, excessive urination, flushing, intolerance to cold, intolerance to heat, unexplained weight gain, unexplained weight loss, others Psychiatric: denies: anxiety, bipolar disorder, depression, hopeless, panic disorder, schizophrenia, sleepless, suicidal, others All Other Systems: Reviewed and Negative (negative unless otherwise stated above or in HPI) Physical Exam General Appearance: Mild Distress (Moderate distress nausea concerns.), Normal HEENT: Head (Unremarkable cranial evaluation. No signs of trauma. No skull depressions or deformities.), Normal ENT Inspection, Pharynx Normal, TMs Normal Neck: Full Range of Motion, Non-Tender, Normal, Normal Inspection Respiratory: Chest Non-Tender, Lungs Clear, No Accessory Muscle Use, No Respiratory Distress, Normal Breath Sounds Cardiovascular: No Edema, No JVD, No Murmur, No Gallop, Normal Peripheral Pulses, Regular Rate/Rhythm Breast Exam: Deferred Gastrointestinal: No Organomegaly, Non Tender, No Pulsatile Mass, Normal Bowel Sounds, Soft Genitalia: Deferred Pelvic: Deferred Rectal: Deferred Extremities: No calf tenderness, Normal capillary refill, Normal inspection, Normal range of motion, Non-tender, No pedal edema Neurologic: Alert, No Motor Deficits, Normal Affect, Normal Mood, No Sensory Deficits Cerebellar Function: Normal Reflexes: Normal Skin: Dry, Normal Color, Warm Lymphatic: No Adenopathy Was a procedure done? Was a procedure done?: No EKG EKG : Pulse Rate (adult): 103 [place]: Normal Cardiac Rhythm: ST Block: None Hypertrophy: None ST: Normal Differential Dx Considerations may include: UTI, adverse medication reaction X-Ray, Labs, Meds, VS Vital Signs Date Time Temp Pulse Resp B/P (MAP) Pulse Ox O2 Delivery O2 Flow Rate FiO2 11/20/24 17:56 103 11/20/24 17:16 103 11/20/24 17:10 99.4 97 20 133/91 (105) 100 Lab Test 11/20/24 17:11 Range/Units POC Glucose 131 H 70-106 mg/dl Current Medications Medications (Trade) Dose Ordered Sig/Krystle Route Start Time Stop Time Status Last Admin Ondansetron HCl (Zofran Po) 4 mg ONCE ONCE PO 11/20/24 17:30 11/20/24 17:31 DC 11/20/24 18:22 X-Ray, Labs, Meds, VS Comment Advised patient that I believe he was suffering from side-effect concerns based on the medication use utilizing. Advised patient to stop with the medication and began Bactrim use. Antiemetic medication as needed. Time of 1ST Reevaluation: 18:36 Reevaluation 1ST: Improved Consultation: PCP Patient Education/Counseling: Diagnosis, Treatment Family Education/Counseling: Diagnosis, Treatment, No Family Present Departure 1 Departure Time of Disposition: 18:36 Impression: Primary Impression: Medication adverse effect Disposition: HOME / SELF CARE / HOMELESS Condition: Stable Additional Instructions: Advised patient utilize antibiotics as directed until completion as well as additional medication as needed for symptomatic relief. Good hydration and healthy nutrition throughout. e-Prescriptions Ondansetron Odt 4MG Tab (ZOFRAN PO) 4 Mg Tb 4 MG PO Q6HP PRN, #20 TAB ODT TAB-DISSOLVE IN MOUTH, THEN SWALLOW Prov: KAY FOSTER PAC 11/20/24 Sulfamethoxazole W/Trimethopri (Bactrim Ds Tablet) 1 Tab Tb 1 TAB PO BID for 7 Days, #14 TAB Prov: KAY FOSTER PAC 11/20/24 Discharged With: Self, Friend Critical Care Note Critical Care Time?: No Stability Stability form required: No Heart Score Heart Score: Heart Score Response (Comments) Value History N/A 0 EKG N/A 0 Age N/A 0 Risk Factors N/A 0 Troponin N/A 0 Total 0 I personally scribed for KAY FOSTER PAC ([email or web address]) on 11/20/24 at 17:56. Electronically submitted by Simon Estevez ([email or web address]). KAY FOSTER PAC Nov 20, 2024 17:56
[2024-11-20] MEDS: ONDANSETRON ODT 4 MG TAB PO ONE (18:22)
[2024-11-20] MEDS ORDERED: BACDST PO (18:38)
[2024-11-20] MEDS ORDERED: ZOFR4T PO (18:38)
[2024-11-20 18:44] VITALS: BP 130/72; RESP 18; TEMP 98.1; O2SAT 98
[2024-11-20 18:45] VITALS: PULSE 70
--- NOTE | 2024-11-21 09:19 | ECG ---
[facility] Test Date: 2024-11-20 Test Time: 17:16:41 Pat Name: JESSICA FELICIANO Department: ER Room: Gender: M Furniture Removalist'S Assistant: AURA : 1985 Requested By: KAY FOSTER Order Number: [id number] Reading MD: Maciel Darden Measurements Intervals [place] Rate: 103 P: 97 ND: 128 QRS: 68 QRSD: 76 T: -83 QT: 283 QTc: 371 Interpretive Statements Sinus tachycardia Borderline repolarization abnormality Electronically Signed On 11-21-2024 9:27:47 PST by Maciel Darden Please click the below link to view image of tracing.
== END 2024-11-20 18:47 | disposition home or self-care (01) ==
LOC: ER 17:03
DX: R42 Dizziness and giddiness (principal); R11.0 Nausea; R23.2 Flushing; F17.210 Nicotine dependence, cigarettes, uncomplicated; Z87.440 Personal history of urinary (tract) infections; T50.905A Adverse effect of unspecified drugs, medicaments and biological substances, initial encounter; Y92.89 Other specified places as the place of occurrence of the external cause
CPT/HCPCS: 82947; 93005; 99283; Q0162; 82962

== ENCOUNTER → 2024-12-02 | Outpatient (CLI) | payer MEDICAID ==
[2024-12-02 11:53] LABS: Urine Bacteria None Seen /hpf (None Seen)
[2024-12-02 12:17] LABS: Urine Blood TRACE /uL (Negative); Urine Clarity Clear (Clear); Urine Color Yellow (Yellow); Urine Mucus FEW (None Seen); Urine Protein, UAD Negative (Negative); Urine Specific Gravity 1.025 (1.001-1.035); Urine Squamous Epithelial Cell FEW /hpf (<5); Urine Urobilinogen 2 mg/dL (Negative); Urine WBC 2 /HPF (0-3); Urine pH 5.5 (5.0-9.0)
[2024-12-02 12:21] LABS: Basophils # (auto) 0 10 ^3/uL (0-0.2); Basophils % (auto) 0.8 % (0.0-2.0); Eosinophils # (auto) 0.1 10 ^3/uL (0-0.8); Eosinophils % (auto) 1.4 % (0.0-7.0); Hematocrit 46.4 % (41.0-53.0); Hemoglobin 14.9 g/dL (13.5-17.5); Lymphocytes # (auto) 2.7 10 ^3/uL (0.4-5.4); Lymphocytes % (auto) 48.8 % (10.0-50.0); Mean Corpuscular Hemoglobin 27.8 pg (28.0-32.0); Mean Corpuscular Hgb Conc. 32.1 g/dL (32.0-36.0); Mean Corpuscular Volume 86.6 fL (80.0-100.0); Monocytes # (auto) 0.4 10 ^3/uL (0-1.3); Monocytes % (auto) 6.5 % (0.0-12.0); Neutrophils # (auto) 2.4 10 ^3/uL (1.6-8.6); Neutrophils % (auto) 42.5 % (37.0-80.0); Nucleated Red Blood Cells % 0.4 %; Platelet Count (auto) 318 10^3/uL (140-450); Red Blood Cells 5.37 10^6/uL (4.5-5.90); Red Cell Distribution Width 14.5 % (11.8-14.3); White Blood Cell 5.6 10^3/uL (4.4-10.8)
[2024-12-02 12:36] LABS: Chloride 104 mmol/L (98-107); Potassium 4.1 mmol/L (3.5-5.1); Sodium 138 mmol/L (136-145)
[2024-12-02 12:37] LABS: Anion Gap 7 (5-15); Calcium 9.8 mg/dL (8.7-10.4); Carbon Dioxide 27 mmol/L (20-31)
[2024-12-02 12:42] LABS: BUN/Creatinine Ratio 8.1 (10.0-20.0); Blood Urea Nitrogen 9 mg/dL (9-23); Glucose 85 mg/dL (74-106); Triglycerides 69 mg/dL (< 150)
[2024-12-02 12:43] LABS: CRP High Sensitivity 0.05 mg/dL (<1.0)
[2024-12-02 12:44] LABS: Cholesterol 187 mg/dL (< 200)
[2024-12-02 12:47] LABS: HDL Cholesterol 39 mg/dL (40-59); LDL Cholesterol 141 mg/dL (< 100)
[2024-12-02 13:22] LABS: Erythrocyte Sedimentation Rate 1 mm/hr (0-20)
[2024-12-03 08:07] LABS: Rheumatoid Arthritis Factor <10.0 IU/mL (<14.0)
[2024-12-03 11:07] LABS: Anti-Nuclear Antibody Direct Negative (Negative); Anti-dsDNA Antibody 6 IU/mL (0-9)
== END | disposition home or self-care (01) ==
LOC: LAB 11:31
PROVIDERS: ATTEND Internal Medicine
DX: Z00.01 Encounter for general adult medical examination with abnormal findings (principal); D89.9 Disorder involving the immune mechanism, unspecified
CPT/HCPCS: 36415; 80048; 80061; 81001; 83036; 84439; 84443; 85025; 85652; 86038; 86141; 86225; 86431

== ENCOUNTER 2024-12-20 16:15 | Emergency (ER) | payer MEDICAID ==
[~2024-12-20] VITALS: Ht 175.3 cm; Wt 62.8 kg
--- NOTE | 2024-12-20 16:35 | ED.PDOC ---
GI ASSESSMENT HPI Comments 39 year old male presents to the ED with chief complaint of abdominal pain. Patient reports that he has been experiencing chronic epigastric burning with associated nausea and vomiting for the past few months. Patient relays that he was last seen in the ED a month ago for the same complaint, but after that visit he followed up with his PCP. Patient states he was sent a referral for a Charging Machine Operator, but not a GI doctor since then. Patient notes he took Zofran prior to his arrival with relief in nausea noted. Patient denies any diarrhea, fever, chills, dizziness, chest pain, or hematemesis. Time Seen by MD: 16:25 Primary Care Provider: UNKNOWN Reviewed Notes: Nurses Notes, Medications, Allergies Allergies: Coded Allergies: NO KNOWN ALLERGIES (Unverified , 10/08/24) Home Meds Active Scripts Ondansetron Odt 4MG Tab (ZOFRAN PO) 4 Mg Tb, 4 MG PO Q6HP PRN, #20 TAB ODT TAB-DISSOLVE IN MOUTH, THEN SWALLOW Prov:KAY FOSTER PAC 11/20/24 Sulfamethoxazole W/Trimethopri (Bactrim Ds Tablet) 1 Tab Tb, 1 TAB PO BID for 7 Days, #14 TAB Prov:KAY FOSTER 11/20/24 Cefdinir (Cefdinir) 300 Mg Cap, 1 CAP PO BID for 5 Days, #14 CAP Prov:KULWINDER TAYLOR MD 11/17/24 Meclizine HCl (Meclizine 25) 25 Mg Tab, 1-2 TAB PO Q8HP PRN, #30 TAB prn dizziness/vertigo Prov:LILLIAN URIARTE MD 10/08/24 Ondansetron Odt 4MG Tab (ZOFRAN PO) 4 Mg Tb, 4 MG PO TID PRN, #30 TAB prn nausea ODT TAB-DISSOLVE IN MOUTH, THEN SWALLOW Prov:LILLIAN URIARTE MD 10/08/24 Sulfamethoxazole W/Trimethopri (Bactrim Ds Tablet) 1 Tab Tb, 1 TAB PO BID for 7 Days, #14 TAB Prov:LILLIAN URIARTE MD 10/08/24 Information Source: Patient Mode of Arrival: Ambulatory Timing: Days Duration: Since onset Prehospital treatment: None Quality: Burning Vomitus: Watery Stool: Normal Severity: Moderate Recent: None Recent Hx of: None Pain Location: Epigastric Modifying Factors: Nothing Associated sign and symptoms: Nausea, Vomiting, Abdominal Pain Past Medical History PAST MEDICAL HISTORY: UTI'S Past Medical History (Other): Recent history of intra-abdominal concerns. Surgical History: Denies all surgeries Family History Family History: Reviewed,noncontributory to illness Social History Smoker: Cigarettes Alcohol: Denies ETOH Use Drugs: Denies Drug Use Lives In: Home Constitutional: denies: chills, diaphoresis, fatigue, fever, malaise, sweats, weakness, others EENTM: denies: blurred vision, double vision, ear bleeding, ear discharge, ear drainage, ear pain, ear ringing, eye pain, eye redness, hearing loss, mouth pain, mouth swelling, nasal discharge, nose bleeding, nose congestion, nose pain, photophobia, tearing, throat pain, throat swelling, voice changes, others Respiratory: denies: cough, hemoptysis, orthopnea, SOB at rest, shortness of breath, SOB with excertion, stridor, wheezing, others Cardiovascular: denies: chest pain, dizzy spells, diaphoresis, Dyspnea on exertion, edema, irregular heart beat, left arm pain, lightheadedness, palpitations, PND, syncope, others Gastrointestinal: reports: abdominal pain, nausea, vomiting; denies: abdomen distended, blood streaked bowels, constipated, diarrhea, dysphagia, difficulty swallowing, hematemesis, melena, poor appetite, poor fluid intake, rectal bleeding, rectal pain, others Genitourinary: denies: burning, dysuria, flank pain, frequency, hematuria, incontinence, penile discharge, penile sore, pain, testicle pain, testicle swelling, urgency, others Neurological: denies: dizziness, fainting, headache, left sided numbness, left sided weakness, numbness, paresthesia, pre-existing deficit, right sided numbness, right sided weakness, seizure, speech problems, tingling, tremors, weakness, others Musculoskeletal: denies: back pain, gout, joint pain, joint swelling, muscle pain, muscle stiffness, neck pain, others Integumetry: denies: bruises, change in color, change in hair/nails, dryness, laceration, lesions, lumps, rash, wounds, others Allergic/Immunocompromised: denies: Difficulty Healing, Frequent Infections, Hives, Itching, others Hematologic/Lymphatic: denies: anemia, blood clots, easy bleeding, easy bruising, swollen glands, others Endocrine: denies: excessive hunger, excessive sweating, excessive thirst, excessive urination, flushing, intolerance to cold, intolerance to heat, unexplained weight gain, unexplained weight loss, others Psychiatric: denies: anxiety, bipolar disorder, depression, hopeless, panic disorder, schizophrenia, sleepless, suicidal, others All Other Systems: Reviewed and Negative Physical Exam General Appearance: Moderate Distress (Distress due to abdominal pain concerns.), Normal HEENT: Normal ENT Inspection, Pharynx Normal, TMs Normal Neck: Full Range of Motion, Non-Tender, Normal, Normal Inspection Respiratory: Chest Non-Tender, Lungs Clear, No Accessory Muscle Use, No Respiratory Distress, Normal Breath Sounds Cardiovascular: No Edema, No JVD, No Murmur, No Gallop, Normal Peripheral Pulses, Regular Rate/Rhythm Breast Exam: Deferred Gastrointestinal: Other (Diffuse periumbilical and epigastric tenderness to palpation throughout. Abdomen was reasonably soft. No pulsatile masses.) Genitalia: Deferred Pelvic: Deferred Rectal: Deferred Extremities: No calf tenderness, Normal capillary refill, Normal inspection, Normal range of motion, Non-tender, No pedal edema Musculoskeletal : Apperance: Normal Neurologic: Alert, fuel operator II-XII nml as Tested, No Motor Deficits, Normal Affect, Normal Mood, No Sensory Deficits Cerebellar Function: Normal Reflexes: Normal Skin: Dry, Normal Color, Warm Lymphatic: No Adenopathy Was a procedure done? Was a procedure done?: No GI differential Dx Differential Diagnosis: Other (Irritable bowel syndrome, gastritis, electrolyte abnormality, sepsis, gastroenteritis) X-Ray, Labs, Meds, VS Vital Signs Date Time Temp Pulse Resp B/P (MAP) Pulse Ox O2 Delivery O2 Flow Rate FiO2 12/20/24 20:47 98.5 79 17 140/71 (94) 98 98.5 12/20/24 20:47 79 17 98 Room Air 12/20/24 16:29 98.0 98 18 128/69 (88) 100 98.0 Lab Test 12/20/24 20:45 12/20/24 16:57 Range/Units Urine Color Light-yellow Yellow Urine Clarity Clear Clear Urine pH 5.5 5.0-9.0 Urine Specific [place] 1.021 1.001-1.035 Urine Protein Negative Negative Urine Ketones 1+ H Negative Urine Blood Negative Negative /uL Urine Nitrite Negative Negative Urine Bilirubin Negative Negative Urine Urobilinogen Normal Negative mg/dL Urine Leukocyte Esterase Negative Negative /uL Urine RBC 2 0 - 3 /hpf Urine Microscopic WBC 1 0-3 /HPF Urine Squamous Epithelial Cells Few <5 /hpf Urine Bacteria None seen None Seen /hpf Urine Mucus Few None Seen Urine Glucose Normal Normal mg/dL White Blood Count 7.4 4.4-10.8 10^3/uL Red Blood Count 5.36 4.5-5.90 10^6/uL Hemoglobin 15.2 13.5-17.5 g/dL Hematocrit 46.8 41.0-53.0 % Mean Corpuscular Volume 87.4 80.0-100.0 fL Mean Corpuscular Hemoglobin 28.5 28.0-32.0 pg Mean Corpuscular Hemoglobin Concent 32.6 32.0-36.0 g/dL Red Cell Distribution Width 14.2 11.8-14.3 % Platelet Count 320 140-450 10^3/uL Mean Platelet Volume 7.2 6.9-10.8 fL Neutrophils (%) (Auto) 50.3 37.0-80.0 % Lymphocytes (%) (Auto) 42.2 10.0-50.0 % Monocytes (%) (Auto) 4.6 0.0-12.0 % Eosinophils (%) (Auto) 1.8 0.0-7.0 % Basophils (%) (Auto) 1.1 0.0-2.0 % Neutrophils # (Auto) 3.7 1.6-8.6 10 ^3/uL Lymphocytes # (Auto) 3.1 0.4-5.4 10 ^3/uL Monocytes # (Auto) 0.3 0-1.3 10 ^3/uL Eosinophils # (Auto) 0.1 0-0.8 10 ^3/uL Basophils # (Auto) 0.1 0-0.2 10 ^3/uL Nucleated Red Blood Cells 0.6 % Sodium Level 139 136-145 mmol/L Potassium Level 4.2 3.5-5.1 mmol/L Chloride Level 107 98-107 mmol/L Carbon Dioxide Level 27 20-31 mmol/L Anion Gap 5 5-15 Blood Urea Nitrogen 11 9-23 mg/dL Creatinine 1.18 0.700-1.30 mg/dL Glomerular Filtration Rate Calc 80 >90 mL/min BUN/Creatinine Ratio 9.3 L 10.0-20.0 Serum Glucose 100 74-106 mg/dL Calcium Level 10.0 8.7-10.4 mg/dL Lipase 33 12-53 U/L Current Medications Medications (Trade) Dose Ordered Sig/Krystle Route Start Time Stop Time Status Last Admin Al Hydrox/Mg Hydrox/Simethicone (Maalox Plus) 30 ml ONCE ONCE PO 12/20/24 16:30 12/20/24 16:31 DC 12/20/24 20:45 Lidocaine HCl (Xylocaine 2% Viscous) 3 ml ONCE ONCE PO 12/20/24 16:30 12/20/24 16:31 DC 12/20/24 20:45 X-Ray, Labs, Meds, VS Comment All studies performed the ED were evaluated by me personally. While serum studies were unremarkable for any acute systemic process. Patient has been notified that he needs to follow up with a gathering machine feeder to assess his continuing intra-abdominal concerns. Advised patient utilize medication as needed for symptomatic relief. Time of 1ST Reevaluation: 22:34 Reevaluation 1ST: Improved Consultation: PCP, GI Patient Education/Counseling: Diagnosis, Treatment Family Education/Counseling: Diagnosis, Treatment, No Family Present Departure 1 Departure Time of Disposition: 22:35 Impression: Primary Impression: Abdominal pain Disposition: HOME / SELF CARE / HOMELESS Condition: Stable Additional Instructions: Advise utilizing medication as needed for symptomatic relief in additionally, patient needs to follow up with primary care provider for GI referral and evaluation as the patient would benefit from an endoscopy procedure to evaluate GI concerns. e-Prescriptions Dicyclomine Hcl (BENTYL CAPSULE) 10 Mg Cp 1 CAP PO Q6HPRN, #20 CAP 0 Refills Prov: KAY FOSTER PAC 12/20/24 Ondansetron Odt 4MG Tab (ZOFRAN PO) 4 Mg Tb 4 MG PO Q6HP PRN, #20 TAB ODT TAB-DISSOLVE IN MOUTH, THEN SWALLOW Prov: KAY FOSTER PAC 12/20/24 Discharged With: Self, Friend Critical Care Note Critical Care Time?: No Stability Stability form required: No Heart Score Heart Score: Heart Score Response (Comments) Value History N/A 0 EKG N/A 0 Age N/A 0 Risk Factors N/A 0 Troponin N/A 0 Total 0 I personally scribed for KAY FOSTER PAC ([email or web address]) on 12/20/24 at 16:35. Electronically submitted by Chirag Leyva ([email or web address]). KAY FOSTER PAC Dec 20, 2024 16:35
[2024-12-20 17:49] LABS: Basophils # (auto) 0.1 10 ^3/uL (0-0.2); Basophils % (auto) 1.1 % (0.0-2.0); Eosinophils # (auto) 0.1 10 ^3/uL (0-0.8); Eosinophils % (auto) 1.8 % (0.0-7.0); Hematocrit 46.8 % (41.0-53.0); Hemoglobin 15.2 g/dL (13.5-17.5); Lymphocytes # (auto) 3.1 10 ^3/uL (0.4-5.4); Lymphocytes % (auto) 42.2 % (10.0-50.0); Mean Corpuscular Hemoglobin 28.5 pg (28.0-32.0); Mean Corpuscular Hgb Conc. 32.6 g/dL (32.0-36.0); Mean Corpuscular Volume 87.4 fL (80.0-100.0); Monocytes # (auto) 0.3 10 ^3/uL (0-1.3); Monocytes % (auto) 4.6 % (0.0-12.0); Neutrophils # (auto) 3.7 10 ^3/uL (1.6-8.6); Neutrophils % (auto) 50.3 % (37.0-80.0); Nucleated Red Blood Cells % 0.6 %; Platelet Count (auto) 320 10^3/uL (140-450); Red Blood Cells 5.36 10^6/uL (4.5-5.90); Red Cell Distribution Width 14.2 % (11.8-14.3); White Blood Cell 7.4 10^3/uL (4.4-10.8)
[2024-12-20 17:52] LABS: Chloride 107 mmol/L (98-107); Potassium 4.2 mmol/L (3.5-5.1); Sodium 139 mmol/L (136-145)
[2024-12-20 17:53] LABS: Anion Gap 5 (5-15); Carbon Dioxide 27 mmol/L (20-31)
[2024-12-20 17:58] LABS: BUN/Creatinine Ratio 9.3 (10.0-20.0); Blood Urea Nitrogen 11 mg/dL (9-23); Glucose 100 mg/dL (74-106); Lipase 33 U/L (12-53)
[2024-12-20] MEDS: LIDOCAINE VISCOUS 2% 15ML UD PO ONE (20:45)
[2024-12-20] MEDS: MAALOX PLUS or MAALOX 30 ML PO ONE (20:45)
[2024-12-20 21:55] LABS: Urine Bacteria None Seen /hpf (None Seen)
[2024-12-20 22:13] LABS: Urine Blood Negative /uL (Negative); Urine Clarity Clear (Clear); Urine Color Light-Yellow (Yellow); Urine Mucus FEW (None Seen); Urine Protein, UAD Negative (Negative); Urine Specific Gravity 1.021 (1.001-1.035); Urine Squamous Epithelial Cell FEW /hpf (<5); Urine Urobilinogen Normal (Negative); Urine WBC 1 /HPF (0-3); Urine pH 5.5 (5.0-9.0)
[2024-12-20] MEDS ORDERED: DICY10CA PO (22:36)
[2024-12-20 22:47] VITALS: BP 136/82; PULSE 70; RESP 18; TEMP 98.1; O2SAT 96
== END 2024-12-20 22:52 | disposition home or self-care (01) ==
LOC: ER 16:15
DX: R10.13 Epigastric pain (principal); R11.2 Nausea with vomiting, unspecified; F17.210 Nicotine dependence, cigarettes, uncomplicated; Z79.899 Other long term (current) drug therapy
CPT/HCPCS: 36415; 80048; 81001; 83690; 85025

== ENCOUNTER 2025-06-01 08:30 | Outpatient (CLI) | payer MEDICAID ==
[~2025-06-01 08:30] MED LIST changes: +DICY10CA PO
[2025-06-01 09:00] LABS: Hematocrit 45.2 % (41.0-53.0); Hemoglobin 15.0 g/dL (13.5-17.5); Mean Corpuscular Hemoglobin 28.4 pg (28.0-32.0); Mean Corpuscular Volume 85.7 fL (80.0-100.0); Nucleated Red Blood Cells % 0.0 %
[2025-06-01 09:35] LABS: Alanine Aminotransferase 13 U/L (7-40); Albumin 4.2 g/dL (3.2-4.8); Alkaline Phosphatase 51 U/L (46-116); Anion Gap 6 (5-15); BUN/Creatinine Ratio 8.8 (10.0-20.0); Bilirubin, Total 0.9 mg/dL (0.2-1.0); Blood Urea Nitrogen 9 mg/dL (9-23); Calcium 8.9 mg/dL (8.7-10.4); Carbon Dioxide 24 mmol/L (20-31); Cholesterol 172 mg/dL (< 200); Glucose 87 mg/dL (74-106); HDL Cholesterol 40 mg/dL (40-59); Potassium 4.0 mmol/L (3.5-5.1); Sodium 139 mmol/L (136-145); Total Protein 6.5 g/dL (5.7-8.2); Triglycerides 79 mg/dL (< 150)
[2025-06-01 09:40] LABS: Chloride 109 mmol/L (98-107)
== END 2025-06-01 17:00 | disposition home or self-care (01) ==
LOC: LAB 08:30
PROVIDERS: ATTEND Internal Medicine
DX: R63.0 Anorexia (principal); R10.84 Generalized abdominal pain; Z00.01 Encounter for general adult medical examination with abnormal findings
CPT/HCPCS: 36415; 80053; 80061; 83036; 84443; 85025

== ENCOUNTER 2025-06-05 11:27 | Emergency (ER) | payer MEDICAID ==
[~2025-06-05] VITALS: Ht 175.3 cm; Wt 60.0 kg
--- NOTE | 2025-06-05 11:43 | ECG ---
[facility] Test Date: 2025-06-05 Test Time: 11:42:06 Pat Name: JESSICA FELICIANO Department: ED Room: Gender: Sales Stock Associate: PATSY : 1985 Requested By: JULIA RANDOLPH Order Number: [id number] Reading MD: Maciel Darden Measurements Intervals [place] Rate: 58 P: 85 ND: 141 QRS: 50 QRSD: 82 T: 63 QT: 377 QTc: 371 Interpretive Statements Sinus rhythm Electronically Signed On 06-06-2025 16:43:45 PDT by Maciel Darden Please click the below link to view image of tracing.
--- NOTE | 2025-06-05 12:24 | ED.PDOC ---
History of Present Illness HPI Comments This is a 40 year old male presenting to the ED with chief complaint of abdominal and chest discomfort. Patient reports that he has been experiencing intermittent episodes of abdominal discomfort with associated chest pounding pain and SOB for the past year, most recent episode being since yesterday. Patient relays that he had a colonoscopy and endoscopy performed yesterday with no abnormal findings being noted. Patient denies any N/V/D, dizziness, fever, chills, headache, cough, or syncope. Chief Complaint: Chest Pain Time Seen by MD: 12:23 Primary Care Provider: UNKNOWN Reviewed Notes: Nurses Notes, Medications, Allergies Allergies: Coded Allergies: NO KNOWN ALLERGIES (Unverified , 10/08/24) Home Meds Active Scripts Dicyclomine Hcl (BENTYL CAPSULE) 10 Mg Cp, 1 CAP PO Q6HPRN, #20 CAP 0 Refills Prov:KAY FOSTER PAC 12/20/24 Ondansetron Odt 4MG Tab (ZOFRAN PO) 4 Mg Tb, 4 MG PO Q6HP PRN, #20 TAB ODT TAB-DISSOLVE IN MOUTH, THEN SWALLOW Prov:KAY FOSTER PAC 12/20/24 Ondansetron Odt 4MG Tab (ZOFRAN PO) 4 Mg Tb, 4 MG PO Q6HP PRN, #20 TAB ODT TAB-DISSOLVE IN MOUTH, THEN SWALLOW Prov:KAY FOSTER PAC 11/20/24 Sulfamethoxazole W/Trimethopri (Bactrim Ds Tablet) 1 Tab Tb, 1 TAB PO BID for 7 Days, #14 TAB Prov:KAY FOSTER PAC 11/20/24 Cefdinir (Cefdinir) 300 Mg Cap, 1 CAP PO BID for 5 Days, #14 CAP Prov:KULWINDER TAYLOR MD 11/17/24 Meclizine HCl (Meclizine 25) 25 Mg Tab, 1-2 TAB PO Q8HP PRN, #30 TAB prn dizziness/vertigo Prov:LILLIAN URIARTE MD 10/08/24 Ondansetron Odt 4MG Tab (ZOFRAN PO) 4 Mg Tb, 4 MG PO TID PRN, #30 TAB prn nausea ODT TAB-DISSOLVE IN MOUTH, THEN SWALLOW Prov:LILLIAN URIARTE MD 10/08/24 Sulfamethoxazole W/Trimethopri (Bactrim Ds Tablet) 1 Tab Tb, 1 TAB PO BID for 7 Days, #14 TAB Prov:LILLIAN URIARTE MD 10/08/24 Information Source: Patient Mode of Arrival: Ambulatory Severity: Moderate Timing: Months Duration: Intermittent Prehospital treatment: None Past Medical History PAST MEDICAL HISTORY: UTI'S Surgical History: Denies all surgeries Family History Family History: Reviewed,noncontributory to illness Social History Smoker: Cigarettes Alcohol: Denies ETOH Use Drugs: Denies Drug Use Lives In: Home Constitutional: denies: chills, diaphoresis, fatigue, fever, malaise, sweats, weakness, others EENTM: denies: blurred vision, double vision, ear bleeding, ear discharge, ear drainage, ear pain, ear ringing, eye pain, eye redness, hearing loss, mouth pain, mouth swelling, nasal discharge, nose bleeding, nose congestion, nose pain, photophobia, tearing, throat pain, throat swelling, voice changes, others Respiratory: reports: shortness of breath; denies: cough, hemoptysis, orthopnea, SOB at rest, SOB with excertion, stridor, wheezing, others Cardiovascular: reports: chest pain; denies: dizzy spells, diaphoresis, Dyspnea on exertion, edema, irregular heart beat, left arm pain, lightheadedness, palpitations, PND, syncope, others Gastrointestinal: reports: abdominal pain; denies: abdomen distended, blood streaked bowels, constipated, diarrhea, dysphagia, difficulty swallowing, hematemesis, melena, nausea, poor appetite, poor fluid intake, rectal bleeding, rectal pain, vomiting, others Genitourinary: denies: burning, dysuria, flank pain, frequency, hematuria, incontinence, penile discharge, penile sore, pain, testicle pain, testicle swelling, urgency, others Neurological: denies: dizziness, fainting, headache, left sided numbness, left sided weakness, numbness, paresthesia, pre-existing deficit, right sided numbness, right sided weakness, seizure, speech problems, tingling, tremors, weakness, others Musculoskeletal: denies: back pain, gout, joint pain, joint swelling, muscle pain, muscle stiffness, neck pain, others Integumetry: denies: bruises, change in color, change in hair/nails, dryness, laceration, lesions, lumps, rash, wounds, others Allergic/Immunocompromised: denies: Difficulty Healing, Frequent Infections, Hives, Itching, others Hematologic/Lymphatic: denies: anemia, blood clots, easy bleeding, easy bruising, swollen glands, others Endocrine: denies: excessive hunger, excessive sweating, excessive thirst, excessive urination, flushing, intolerance to cold, intolerance to heat, unexplained weight gain, unexplained weight loss, others Psychiatric: denies: anxiety, bipolar disorder, depression, hopeless, panic disorder, schizophrenia, sleepless, suicidal, others All Other Systems: Reviewed and Negative Physical Exam General Appearance: Mild Distress, Normal HEENT: Normal ENT Inspection, Pharynx Normal, TMs Normal Neck: Full Range of Motion, Non-Tender, Normal, Normal Inspection Respiratory: Chest Non-Tender, Lungs Clear, No Accessory Muscle Use, No Respiratory Distress, Normal Breath Sounds Cardiovascular: No Edema, No JVD, No Murmur, No Gallop, Normal Peripheral Pulses, Regular Rate/Rhythm Breast Exam: Deferred Gastrointestinal: No Organomegaly, Non Tender, No Pulsatile Mass, Normal Bowel Sounds, Soft Genitalia: Deferred Pelvic: Deferred Rectal: Deferred Extremities: No calf tenderness, Normal capillary refill, Normal inspection, Normal range of motion, Non-tender, No pedal edema Musculoskeletal : Apperance: Normal Neurologic: Alert, divinity professor II-XII nml as Tested, No Motor Deficits, Normal Affect, Normal Mood, No Sensory Deficits Cerebellar Function: Normal Reflexes: Normal Skin: Dry, Normal Color, Warm Peripheral Pulses: 3+ Radial (R), 3+ Radial (L) Lymphatic: No Adenopathy Was a procedure done? Was a procedure done?: No EKG EKG : Pulse Rate (adult): 58 [place]: Normal Cardiac Rhythm: NSR Block: None Hypertrophy: None ST: Normal Differential Dx Considerations may include: Anemia Electrolyte imbalance X-Ray, Labs, Meds, VS Vital Signs Date Time Temp Pulse Resp B/P (MAP) Pulse Ox O2 Delivery O2 Flow Rate FiO2 06/05/25 13:47 Room Air* 0 21 06/05/25 13:47 97.9 72 16 131/77 (95) 98 97.9 06/05/25 12:24 58 06/05/25 11:42 58 06/05/25 11:34 98.4 66 16 133/89 99 98.4 Lab Test 06/05/25 12:48 Range/Units White Blood Count 5.1 4.4-10.8 10^3/uL Red Blood Count 4.96 4.5-5.90 10^6/uL Hemoglobin 14.2 13.5-17.5 g/dL Hematocrit 43.0 41.0-53.0 % Mean Corpuscular Volume 86.8 80.0-100.0 fL Mean Corpuscular Hemoglobin 28.7 28.0-32.0 pg Mean Corpuscular Hemoglobin Concent 33.0 32.0-36.0 g/dL Red Cell Distribution Width 14.1 11.8-14.3 % Platelet Count 282 140-450 10^3/uL Mean Platelet Volume 7.0 6.9-10.8 fL Neutrophils (%) (Auto) 47.8 37.0-80.0 % Lymphocytes (%) (Auto) 41.5 10.0-50.0 % Monocytes (%) (Auto) 7.5 0.0-12.0 % Eosinophils (%) (Auto) 2.2 0.0-7.0 % Basophils (%) (Auto) 1.0 0.0-2.0 % Neutrophils # (Auto) 2.5 1.6-8.6 10 ^3/uL Lymphocytes # (Auto) 2.1 0.4-5.4 10 ^3/uL Monocytes # (Auto) 0.4 0-1.3 10 ^3/uL Eosinophils # (Auto) 0.1 0-0.8 10 ^3/uL Basophils # (Auto) 0.1 0-0.2 10 ^3/uL Nucleated Red Blood Cells 0.3 % Sodium Level 137 136-145 mmol/L Potassium Level 4.1 3.5-5.1 mmol/L Chloride Level 106 98-107 mmol/L Carbon Dioxide Level 27 20-31 mmol/L Anion Gap 4 L 5-15 Blood Urea Nitrogen 6 L 9-23 mg/dL Creatinine 1.12 0.700-1.30 mg/dL Glomerular Filtration Rate Calc 84 >90 mL/min BUN/Creatinine Ratio 5.4 L 10.0-20.0 Serum Glucose 88 74-106 mg/dL Calcium Level 8.9 8.7-10.4 mg/dL Troponin I High Sensitivity < 3 L </=54 ng/L Patient alert. Chronic symptoms. Vitals stable. Answering questions. Cardiac marker within normal limits. EKG reviewed does not show any acute changes. Has been here many times for similar symptom. WBC within normal limits. Hemoglobin within normal limits. No leg swelling. Abdomen is soft nontender. Ambulating without difficulty. Explained to the patient. Was told to follow up with his primary care physician. Was told to come back if there is any problem. Time of 1ST Reevaluation: 13:22 Reevaluation 1ST: Unchanged Patient Education/Counseling: Diagnosis, Treatment Family Education/Counseling: No Family Present SEPSIS Sepsis Screen Date sepsis recognized/suspect: Jun 05, 2025 Time Sepsis recognized/suspect: 1135 Recent Procedure: No On Antibiotic Therapy: No Respiratory Rate >20: No Heart Rate >90: No Temp<36 C (96.8 F) or >38.3 C: No SBP <90 or MAP <65 mmHG: No New Acute Mental Status Change: No Is the patient on CPAP, BIPAP,: No Vital Signs Date Time Temp Pulse Resp B/P (MAP) Pulse Ox O2 Delivery O2 Flow Rate FiO2 06/05/25 13:47 Room Air* 0 21 06/05/25 13:47 97.9 72 16 131/77 (95) 98 97.9 06/05/25 12:24 58 06/05/25 11:42 58 06/05/25 11:34 98.4 66 16 133/89 99 98.4 Laboratory Tests Test 06/05/25 12:48 White Blood Count 5.1 10^3/uL (4.4-10.8) Departure 1 Departure Time of Disposition: 17:44 Impression: Primary Impression: Gastritis Qualified Codes: K29.30 - Chronic superficial gastritis without bleeding Disposition: 01 HOME / SELF CARE / HOMELESS Condition: Good Discharged With: Self Critical Care Note Critical Care Time?: No Stability Stability form required: No Heart Score Heart Score: Heart Score Response (Comments) Value History Slightly Suspicious 0 EKG Normal 0 Age <45 0 Risk Factors No known risk factors 0 Troponin Normal limit 0 Total 0 I personally scribed for JULIA RANDOLPH MD ([email or web address]) on 06/05/25 at 12:24. Electronically submitted by Chirag Leyva ([email or web address]). JULIA RANDOLPH MD Jun 05, 2025 12:24
[2025-06-05 13:09] LABS: Hematocrit 43.0 % (41.0-53.0); Hemoglobin 14.2 g/dL (13.5-17.5); Mean Corpuscular Hemoglobin 28.7 pg (28.0-32.0); Mean Corpuscular Volume 86.8 fL (80.0-100.0); Nucleated Red Blood Cells % 0.3 %
[2025-06-05 13:11] LABS: Chloride 106 mmol/L (98-107); Potassium 4.1 mmol/L (3.5-5.1); Sodium 137 mmol/L (136-145)
[2025-06-05 13:12] LABS: Anion Gap 4 (5-15); Calcium 8.9 mg/dL (8.7-10.4); Carbon Dioxide 27 mmol/L (20-31)
[2025-06-05 13:17] LABS: BUN/Creatinine Ratio 5.4 (10.0-20.0); Glucose 88 mg/dL (74-106)
[2025-06-05 13:18] LABS: Blood Urea Nitrogen 6 mg/dL (9-23)
[2025-06-05 13:47] VITALS: BP 131/77; PULSE 72; RESP 16; TEMP 97.9; O2SAT 98
== END 2025-06-05 13:47 | disposition home or self-care (01) ==
LOC: ER 11:27
DX: K29.70 Gastritis, unspecified, without bleeding (principal); R07.89 Other chest pain; F17.210 Nicotine dependence, cigarettes, uncomplicated; Z87.440 Personal history of urinary (tract) infections
CPT/HCPCS: 36415; 80048; 84484; 85025; 93005